=== PATIENT | female | born 1960 | race Caucasian/White ===

== ENCOUNTER 2017-01-05 15:12 | Emergency (ER) | payer MEDICAID ==
[~2017-01-05] VITALS: Ht 165.1 cm; Wt 62.0 kg
[2017-01-05] MEDS ORDERED: IBUPROFEN 400MG TABLET PO ONE (16:30)
[2017-01-05 16:40] VITALS: BP 134/66
== END 2017-01-05 17:20 | disposition home or self-care (01) ==
LOC: ER 16:09
DX: R68.84 Jaw pain (principal); E11.9 Type 2 diabetes mellitus without complications; E78.00 Pure hypercholesterolemia, unspecified; M81.0 Age-related osteoporosis without current pathological fracture
CPT/HCPCS: 99282